=== PATIENT | male | born 1970 | race Caucasian/White ===

== ENCOUNTER 2018-11-04 18:21 | Emergency (ER) | payer OTHER ==
[~2018-11-04] VITALS: Ht 188 cm; Wt 88.5 kg
== END 2018-11-04 21:50 | disposition home or self-care (01) ==
LOC: ER 18:21
DX: S60.475A Other superficial bite of left ring finger, initial encounter (principal); S50.12XA Contusion of left forearm, initial encounter; S80.02XA Contusion of left knee, initial encounter; W54.0XXA Bitten by dog, initial encounter; W18.39XA Other fall on same level, initial encounter; Y93.89 Activity, other specified; Y92.89 Other specified places as the place of occurrence of the external cause; Y99.8 Other external cause status